=== PATIENT | male | born 1970 | race Caucasian/White ===

== ENCOUNTER 2019-01-25 11:14 | Emergency (ER) | payer MEDICAID ==
[2019-01-25] MEDS ORDERED: Ondansetron 4 MG/2 ML SDV IVPUSH ONE (11:56)
[2019-01-25] MEDS ORDERED: HYDROmorphone 1 MG/ML Syringe IVPUSH ONE ×2 (11:56→13:41)
[2019-01-25] MEDS ORDERED: Sodium Chloride 0.9% 10 ML Syringe FLUSH PRN ×2 (11:58→12:04)
[2019-01-25] MEDS ORDERED: Iopamidol 612 MG/ML 100 ML Bottle IVPUSH ONE (12:04)
[2019-01-25] MEDS ORDERED: Diatrizoate Meglumine/Diatrizoate Sodium 37% 120 ML Bottle PO ONE (12:04)
--- NOTE | 2019-01-25 12:14 | EDM.PDOC ---
ED HPI GENERAL MEDICAL PROBLEM - General Chief Complaint: Abdominal Pain Stated Complaint: PANCREAITIS Time Seen by Provider: 01/25/19 11:47 Source of Information: Reports: Patient History Limitations: Reports: No Limitations - History of Present Illness INITIAL COMMENTS - FREE TEXT/NARRATIVE: 48-year-old male presents for evaluation and treatment of suspected pancreatitis. Patient reports that the pain started suddenly this morning around 0900. He states is located epigastric area and radiates into his back and chest. Reports associated symptoms of nausea and vomiting. Describes the pain as a sharp stabbing sensation, similar to pancreatitis when he has had this in the past. No lightheadedness, dizziness, syncope, shortness of breath, diarrhea or any urinary symptoms. Last episode of pancreatitis was January last year. Patent resides in [place], [facility] he brought his children here to see the [employer]. Patient has a history of hypercholesterolemia. Other than history of pancreatitis also had quadruple bypass. No history of diabetes. No tobacco use. Patient is a full code. Onset: Today, Sudden Location: Reports: Chest, Abdomen Treatments DIRECT CHILL CASTER: Reports: Other (see below) Other Treatments DIRECT CHILL CASTER: none Upper Abdomen Pain Score (Numeric/FACES): 10 - Related Data Allergies Allergy/AdvReac Type Severity Reaction Status Date / Time avocado AdvReac Abdominal Verified 01/25/19 13:25 Pain honey AdvReac Abdominal Verified 01/25/19 13:25 Pain Home Meds: Home Meds Gemfibrozil [Lopid] 600 mg PO BID 30 Days #60 tablet 01/19/18 [Rx] Omeprazole 20 mg PO DAILY #20 tab 02/01/18 [Rx] Metoprolol Tartrate 25 mg PO DAILY 06/07/18 [History] Simvastatin 10 mg PO DAILY 06/07/18 [History] Past Medical History HEENT History: Reports: None Cardiovascular History: Reports: High Cholesterol, [place] Other Cardiovascular History: high triglycerides Respiratory History: Reports: None Gastrointestinal History: Reports: Pancreatitis Other Gastrointestinal History: pancreatitis x9; 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 Genitourinary History: Reports: None Musculoskeletal History: Reports: None Neurological History: Reports: None Psychiatric History: Reports: None Endocrine/Metabolic History: Reports: None Hematologic History: Reports: None Immunologic History: Reports: None Oncologic (Cancer) History: Reports: None Dermatologic History: Reports: None - Infectious Disease History Infectious Disease History: Reports: Chicken Pox - Past Surgical History Head Surgeries/Procedures: Reports: None HEENT Surgical History: Reports: None Cardiovascular Surgical History: Reports: Coronary Artery Bypass Other Cardiovascular Surgeries/Procedures: 4 vessels Respiratory Surgical History: Reports: None GI Surgical History: Reports: Cholecystectomy Male Surgical History: Reports: None Endocrine Surgical History: Reports: None Neurological Surgical History: Reports: None Musculoskeletal Surgical History: Reports: None Oncologic Surgical History: Reports: None Dermatological Surgical History: Reports: None Social & Family History - Family History Family Medical History: Noncontributory - Tobacco Use Smoking Status *Q: Never Smoker - Caffeine Use Caffeine Use: Reports: Coffee Caffeine Use Comment: hx of energy drink use - Recreational Drug Use Recreational Drug Use: No ED ROS GENERAL - Review of Systems Review Of Systems: See Below Respiratory: Denies: Shortness of Breath Cardiovascular: Reports: Chest Pain. Denies: Lightheadedness, Syncope GI/Abdominal: Reports: Abdominal Pain (epigastric radiating into chest, back ), Nausea, Vomiting. Denies: Diarrhea : Reports: No Symptoms Musculoskeletal: Reports: Back Pain ED EXAM, GI/ABD - Physical Exam Exam: See Below Exam Limited By: No Limitations General Appearance: Alert, WD/WN, Moderate Distress (vomiting upon my arrival in the room), Obese Respiratory/Chest: No Respiratory Distress, Lungs Clear, Normal Breath Sounds Cardiovascular: Normal Peripheral Pulses, Regular Rate, Rhythm, No Murmur GI/Abdominal Exam: Guarding, Tender (epigastric; pain to ligt palpation), Abnormal Bowel Sounds (decreased) Neurological: Alert, Oriented, Normal Cognition Psychiatric: Normal Affect, Normal Mood Skin Exam: Warm, Dry, Normal Color EKG INTERPRETATION EKG Date: 01/25/19 Time: 12:55 Rhythm: NSR Rate (Beats/Min): 84 [place]: Normal P-Wave: Present QRS: Normal ST-T: Normal QT: Normal EKG Interpretation Comments: NSR at [address] elevated in V1-V$. Q wves inferior leads. Reviewed by myself and Dr. Barnhart. Dr. Barnhart advised against giving thrombolytics at this time. Course - Vital Signs Last Recorded V/S: Last Vital Signs Temp 97.2 F 01/25/19 11:27 Pulse 70 01/25/19 11:27 Resp 20 01/25/19 11:27 BP 168/98 H 01/25/19 11:27 Pulse Ox 98 01/25/19 11:27 - Orders/Labs/Meds Orders: Active Orders 24 hr Category Date Time Status Cardiac Monitoring [RC] . DIRECTED Care 01/25/19 11:56 Active EKG Documentation Completion [RC] ASDIRECTED Care 01/25/19 11:56 Active Peripheral IV Care [RC] . DIRECTED Care 01/25/19 11:58 Active Abdomen Pelvis wo Cont [CT] Stat Exams 01/25/19 13:19 Taken HYDROmorphone [Dilaudid] Med 01/25/19 13:41 Once 1 mg IVPUSH ONETIME ONE Heparin Sodium/D5W [Heparin 25,000 Units in D5W 500 ML] Med 01/25/19 13:00 Active 25,000 units in 500 ml IV TITRATE Sodium Chloride 0.9% [Saline Flush] Med 01/25/19 11:58 Active 10 ml FLUSH ASDIRECTED PRN Sodium Chloride 0.9% [Saline Flush] Med 01/25/19 12:04 Active 10 ml FLUSH ONETIME PRN Peripheral IV Insertion Adult [OM.PC] Routine Oth 01/25/19 11:58 Ordered EKG 12 Lead [EK] Stat Ther 01/25/19 11:56 Ordered Medication Orders Hydromorphone HCl (Dilaudid) 1 mg IVPUSH ONETIME ONE Stop: 01/25/19 13:42 Heparin Sodium/Dextrose (Heparin 25,000 Units In D5w 500 Ml) 25,000 units in 500 mls @ 20 mls/hr IV TITRATE DANIAL; Protocol Last Admin: 01/25/19 13:24 Dose: 1,000 units/hr, 20 mls/hr Sodium Chloride (Saline Flush) 10 ml FLUSH ASDIRECTED PRN PRN Reason: Keep Vein Open Last Admin: 01/25/19 12:13 Dose: 10 ml Sodium Chloride (Saline Flush) 10 ml FLUSH ONETIME PRN PRN Reason: IV FLUSH Labs: Laboratory Tests 01/25/19 01/25/19 01/25/19 Range/Units 11:30 11:30 11:30 WBC 8.23 (4.23-9.07) K/mm3 RBC 4.65 (4.63-6.08) M/mm3 Hgb 15.1 (13.7-17.5) gm/L Hct 46.5 (40.1-51.0) % MCV 97.4 H (79.0-92.2) fl MCH 32.5 H (25.7-32.2) pg MCHC 33.3 (32.2-35.5) g/dl RDW Std Deviation 44.6 H (35.1-43.9) fL Plt Count 225 (163-337) K/mm3 MPV 9.9 (9.4-12.3) fl Neutrophils % (Manual) 78 H (40-60) % Band Neutrophils % 0 (0-10) % Lymphocytes % (Manual) 20 (20-40) % Atypical Lymphs % 0 % Monocytes % (Manual) 2 (2-10) % Eosinophils % (Manual) 0 L (0.8-7.0) % Basophils % (Manual) 0 L (0.2-1.2) Platelet Estimate Adequate RBC Morph Comment Normal PT (9.7-12.0) SECONDS INR APTT (22-31) SECONDS Sodium 131 L (136-145) mEq/L Potassium 4.0 (3.5-5.1) mEq/L Chloride 97 L (98-107) mEq/L Carbon Dioxide 23 (21-32) mEq/L Anion Gap 15.0 (5-15) BUN TNP Creatinine TNP Est Cr Clr Drug Dosing TNP Estimated GFR (MDRD) TNP BUN/Creatinine Ratio TNP Glucose 240 H (74-106) mg/dL Calcium TNP Total Bilirubin TNP AST TNP ALT TNP Alkaline Phosphatase TNP CK-MB (CK-2) (0-3.6) ng/ml Troponin I 0.115 H* (0.00-0.056) ng/mL C-Reactive Protein 0.3 (<1.0) mg/dL Total Protein TNP Albumin TNP Globulin TNP Albumin/Globulin Ratio TNP Amylase TNP Lipase 13884 H (73-393) U/L 01/25/19 Range/Units 11:30 WBC (4.23-9.07) K/mm3 RBC (4.63-6.08) M/mm3 Hgb (13.7-17.5) gm/L Hct (40.1-51.0) % MCV (79.0-92.2) fl MCH (25.7-32.2) pg MCHC (32.2-35.5) g/dl RDW Std Deviation (35.1-43.9) fL Plt Count (163-337) K/mm3 MPV (9.4-12.3) fl Neutrophils % (Manual) (40-60) % Band Neutrophils % (0-10) % Lymphocytes % (Manual) (20-40) % Atypical Lymphs % % Monocytes % (Manual) (2-10) % Eosinophils % (Manual) (0.8-7.0) % Basophils % (Manual) (0.2-1.2) Platelet Estimate RBC Morph Comment PT (9.7-12.0) SECONDS INR APTT (22-31) SECONDS Sodium (136-145) mEq/L Potassium (3.5-5.1) mEq/L Chloride (98-107) mEq/L Carbon Dioxide (21-32) mEq/L Anion Gap (5-15) BUN Creatinine Est Cr Clr Drug Dosing Estimated GFR (MDRD) BUN/Creatinine Ratio Glucose (74-106) mg/dL Calcium Total Bilirubin AST ALT Alkaline Phosphatase CK-MB (CK-2) 1.3 (0-3.6) ng/ml Troponin I (0.00-0.056) ng/mL C-Reactive Protein (<1.0) mg/dL Total Protein Albumin Globulin Albumin/Globulin Ratio Amylase Lipase (73-393) U/L Meds: Medications Generic Name Dose Route Start Last Admin Trade Name Freq PRN Reason Stop Dose Admin Hydromorphone HCl 1 mg 01/25/19 13:41 Dilaudid IVPUSH 01/25/19 13:42 ONETIME ONE Heparin Sodium/Dextrose 25,000 units in 500 mls @ 20 mls/hr 01/25/19 13:00 13:24 Heparin 25,000 Units In D5w 500 Ml IV 1,000 units/hr TITRATE DANIAL 20 mls/hr Administration Protocol 1,000 UNITS/HR Sodium Chloride 10 ml 01/25/19 11:58 01/25/19 12:13 Saline Flush FLUSH 10 ml ASDIRECTED PRN Administration Keep Vein Open Sodium Chloride 10 ml 01/25/19 12:04 Saline Flush FLUSH ONETIME PRN IV FLUSH Discontinued Medications Generic Name Dose Route Start Last Admin Trade Name Allie PRN Reason Stop Dose Admin Aspirin 324 mg 01/25/19 12:45 01/25/19 13:25 Aspirin PO 01/25/19 12:46 324 mg ONETIME ONE Administration Diatrizoate Meglum/Diatrizoate Sod 120 ml 01/25/19 12:04 01/25/19 13:31 Gastrografin 37% PO 01/25/19 12:05 90 ml ONETIME ONE Administration Heparin Sodium (Porcine) 4,000 units 01/25/19 12:57 01/25/19 13:21 Heparin Sodium IVPUSH 01/25/19 12:58 4,000 units .BOLUS ONE Administration Hydromorphone HCl 1 mg 01/25/19 11:56 01/25/19 12:13 Dilaudid IVPUSH 01/25/19 11:57 1 mg ONETIME ONE Administration Iopamidol 100 ml 01/25/19 12:04 Isovue-300 (61%) IVPUSH 01/25/19 12:05 ONETIME ONE Ondansetron HCl 4 mg 01/25/19 11:56 01/25/19 12:13 Zofran IVPUSH 01/25/19 11:57 4 mg ONETIME ONE Administration - Radiology Interpretation Free Text/Narrative:: Chest: Portable view of the chest was obtained. Comparison: No prior chest x-ray. Heart size and mediastinum are normal. Previous sternotomy is seen. Lungs are clear. Bony structures are grossly intact. Impression: 1. Nothing acute is seen on portable chest x-ray. - Re-Assessments/Exams Free Text/Narrative Re-Assessment/Exam: 01/25/19 13:44 Labs return. Troponin was rechecked by labs and found to be the same at 0.115. Review the patient's labs from [place], in December he had a normal creatinine 1.0. His last reported trop from January of last year was within normal limits in [place]. Unable to get a majority of the labs today due to lipemic sample. Therefore his CT was change from a CT with contrast to without due to concerns of effects of contrast. Reviewed the labs, EKG and imaging with the patient. We'll send him to [facility]. Case discussed with Dr. Charlton, hospitalist, on at [facility] in [place]. She agrees to accept the patient. He'll go by ground ambulance. Patient has received aspirin, heparin bolus and heparin drip. He states at this the pain is starting to return. He is primarily feeling pain in the epigastric region rates as 3 out of 10. No chest pain at this time. Vitals remain stable. Departure - Departure Time of Disposition: 13:49 Disposition: DC/Tfer to Acute Hospital 02 Condition: Serious Clinical Impression: Acute pancreatitis, Familial hypercholesterolemia, Hypertriglyceridemia, familial, Abdominal pain, NSTEMI (non-ST elevated myocardial infarction) - Discharge Information *PRESCRIPTION DRUG MONITORING PROGRAM REVIEWED*: No *COPY OF PRESCRIPTION DRUG MONITORING REPORT IN PATIENT [place]: No Referrals: PCP,Not In Area [Primary Care Provider] - Forms: ED Department Discharge Additional Instructions: Patient to go by ground ambulance to [facility] in [place], Dr. Charlton, accepting. - My Orders Last 24 Hours: My Active Orders 01/25/19 11:56 Cardiac Monitoring [RC] . DIRECTED EKG Documentation Completion [RC] ASDIRECTED EKG 12 Lead [EK] Stat 01/25/19 11:58 Peripheral IV Care [RC] . DIRECTED Sodium Chloride 0.9% [Saline Flush] 10 ml FLUSH ASDIRECTED PRN Peripheral IV Insertion Adult [OM.PC] Routine 01/25/19 12:04 Sodium Chloride 0.9% [Saline Flush] 10 ml FLUSH ONETIME PRN 01/25/19 13:00 Heparin Sodium/D5W [Heparin 25,000 Units in D5W 500 ML] 25,000 units in 500 ml IV TITRATE 01/25/19 13:19 Abdomen Pelvis wo Cont [CT] Stat 01/25/19 13:41 HYDROmorphone [Dilaudid] 1 mg IVPUSH ONETIME ONE - Assessment/Plan Last 24 Hours: My Active Orders 01/25/19 11:56 Cardiac Monitoring [RC] . DIRECTED EKG Documentation Completion [RC] ASDIRECTED EKG 12 Lead [EK] Stat 01/25/19 11:58 Peripheral IV Care [RC] . DIRECTED Sodium Chloride 0.9% [Saline Flush] 10 ml FLUSH ASDIRECTED PRN Peripheral IV Insertion Adult [OM.PC] Routine 01/25/19 12:04 Sodium Chloride 0.9% [Saline Flush] 10 ml FLUSH ONETIME PRN 01/25/19 13:00 Heparin Sodium/D5W [Heparin 25,000 Units in D5W 500 ML] 25,000 units in 500 ml IV TITRATE 01/25/19 13:19 Abdomen Pelvis wo Cont [CT] Stat 01/25/19 13:41 HYDROmorphone [Dilaudid] 1 mg IVPUSH ONETIME ONE
[2019-01-25] MEDS ORDERED: Aspirin 81 MG Tab.Chew PO ONE (12:45)
[2019-01-25] MEDS ORDERED: Heparin Sodium 5,000 Units/ML Vial IVPUSH ONE (12:57)
[2019-01-25] MEDS ORDERED: Heparin Sodium/D5W 25,000 UNITS/500 ML BAG IV SCH (13:00)
--- NOTE | 2019-01-25 13:15 | CR ---
Chest: Portable view of the chest was obtained. Comparison: No prior chest x-ray. Heart size and mediastinum are normal. Previous sternotomy is seen. Lungs are clear. Bony structures are grossly intact. Impression: 1. Nothing acute is seen on portable chest x-ray. Diagnostic code #2
--- NOTE | 2019-01-25 14:07 | CT ---
CT abdomen and pelvis Technique: Multiple axial sections were obtained from above the dome of the diaphragm inferiorly through the pubic symphysis. Intravenous contrast not utilized. Oral contrast has been given. Comparison: No prior abdominal imaging is available. Findings: Slight atelectasis is noted within the left lung base. Noncontrast appearance of the liver shows no focal abnormality. Spleen is generous in size with length 14.5 cm. No focal abnormality is appreciated within the spleen. Adrenal glands show no nodule. Pancreas shows very mild surrounding inflammatory change which is felt compatible with mild pancreatitis. Kidneys show no abnormal calcifications or hydronephrosis. Aorta shows no aneurysm. No retroperitoneal adenopathy or mesenteric abnormalities are seen. Appendix is seen which is normal. No pelvic mass or adenopathy is seen. No free fluid or inflammatory change is seen within the pelvis. Impression: 1. Very slight inflammatory change around the pancreas suspicious for mild pancreatitis. 2. Mild splenomegaly. Etiology of this finding is not apparent on this exam. 3. No additional abnormality is seen on noncontrast CT study of the abdomen and pelvis. Diagnostic code #3
== END 2019-01-25 14:14 ==
LOC: JD.ED 11:14 → JD.MS 14:26 → UNDOADMOB 14:26
DX: I21.4 Non-ST elevation (NSTEMI) myocardial infarction (principal); K85.90 Acute pancreatitis without necrosis or infection, unspecified; E78.01 Familial hypercholesterolemia; E78.1 Pure hyperglyceridemia; E78.00 Pure hypercholesterolemia, unspecified; I25.2 Old myocardial infarction; Z91.018 Allergy to other foods; Z90.49 Acquired absence of other specified parts of digestive tract; Z79.899 Other long term (current) drug therapy
CPT/HCPCS: 36415; 71045; 74176; 80053; 82553; 83690; 84484; 85007; 85027; 85610; 85730; 86140; 93005; 96365; 96375; 96376; 99285; A9270; J1170; J1644; J2405; Q9963; 93010; 99283